=== PATIENT | male | born 1965 | race American Indian/Alaskan Native ===

== ENCOUNTER 2016-11-24 17:05 | Emergency (ER) | payer MEDICAID ==
[2016-11-24] MEDS ORDERED: levETIRAcetam 500 MG/5 ML Solution ML 473 ml Bottle PO SCH (17:30)
[2016-11-24] MEDS ORDERED: carBAMazepine 200 MG Tab PO ONE (17:32)
--- NOTE | 2016-11-24 17:40 | EDM.PDOC ---
ED HPI SEIZURE COMPLAINT - General Chief Complaint: Neuro Symptoms/Deficits Stated Complaint: seizures Time Seen by Provider: 11/24/16 17:10 Source of Information: Reports: EMS notes reviewed, Family, assisted records. Denies: Patient History Limitations: Reports: Other - History of Present Illness INITIAL COMMENTS - FREE TEXT/NARRATIVE: History of present illness: [Patient is a 51-year-old male brought in by EMS secondary to concerns of seizure activity. Patient has a known long-standing history of seizures secondary to numerous pre-existing neurological conditions. Patient is generally nonverbal and able to communicate intermittently sporadically by pointing to yes or no on a speaking board. Patient has been spitting out meds and approximately 2 days ago it was determined to discontinue all medications secondary to noncompliance with plan. Patient is at a long-term care facility and they became concerned due to to his lack of oral consumption of nutrition and spitting out of medication. Patient now has subsequently had a couple seizures today and the long-term care facility had been in dialogue with his lead military analyst who decided to have him brought to the hospital to be placed back on medication.] Review of systems: As per history of present illness and below otherwise all systems reviewed and negative. Past medical history: As per history of present illness and as reviewed below otherwise noncontributory. Surgical history: As per history of present illness and as reviewed below otherwise noncontributory. Social history: No reported history of drug or alcohol abuse. Family history: As per history of present illness and as reviewed below otherwise noncontributory. Physical exam: HEENT: Atraumatic, normocephalic, pupils reactive, negative for conjunctival pallor or scleral icterus, mucous membranes moist, throat clear, neck supple, nontender, trachea midline. Lungs: Clear to auscultation, breath sounds equal bilaterally, chest nontender. Heart: S1S2, regular, negative for clicks, rubs, or JVD. Abdomen: Soft, nondistended, nontender. Negative for masses or hepatosplenomegaly. Negative for costovertebral tenderness. Pelvis: Stable nontender. Genitourinary: Deferred. Rectal: Deferred. Extremities: Atraumatic. Neuro: Somnolent responsive primarily to noxious stimuli with no meaningful communication. Patient is bedbound and unable to interact or cooperate with full neurological assessment. Diagnostics: [] Therapeutics: [Dilantin, Keppra, Tegretol restart] Impression: [Seizure disorder] Plan: [Reinitiate routine seizure medication message left for Dr. Dodson in regards to this issue. Also communicated that patient and no desire to be lead military analyst and would like the [facility] to designate an outside guardian for patient.] Definitive disposition and diagnosis as appropriate pending reevaluation and review of above. - Related Data Allergies/ADRs: Allergies Allergy/AdvReac Type Severity Reaction Status Date / Time No Known Allergies Allergy Verified 11/24/16 17:22 Home Meds: Home Meds carBAMazepine [Tegretol] 200 mg PO BID 03/31/16 [History] Acetaminophen [Tylenol Extra Strength] 1,000 mg PO Q4HR PRN 04/01/16 [History] Dantrolene Sodium 25 mg PO TID 04/01/16 [History] Levothyroxine [Synthroid] 50 mcg PO ACBREAKFAST 04/01/16 [History] Phenytoin [Dilantin] 150 mg CHEW BID 04/01/16 [History] Sennosides/Docusate Sodium [Senna-Docusate Sodium Tablet] 2 tab PO BID 04/01/16 [History] levETIRAcetam [Keppra] 15 ml PO BID 04/01/16 [History] Promethazine HCl [Phenergan] 25 mg IM Q6H PRN 10/27/16 [History] Past Medical History Other HEENT History: Impaired swallowing pureed diet with ground, hoeny thickened liquids. Gastrointestinal History: Reports: Chronic constipation, Other (see below) Other Gastrointestinal History: hx of g tube, pulled 11/21/2015; hx Cintia- Ellis tear Other Genitourinary History: Incontinent of bladder. Other Musculoskeletal History: Unable to walk, complete ranjith lift, patient does move all extremities. Neurological History: Reports: Brain injury, Head trauma, Seizure Other Neuro History: Dyspagia. Psychiatric History: Reports: Depression, Mood swings Endocrine/Metabolic History: Reports: Hypothyroidism, Other (see below) Other Endocrine/Metabolic History: hepatic failure - Infectious Disease History Infectious Disease History: Reports: C-difficile Social & Family History - Tobacco Use Smoking Status *Q: Unknown Ever Smoked Second Hand Smoke Exposure: No - Recreational Drug Use Recreational Drug Use: No ED ROS GENERAL - Review of Systems Review Of Systems: See Below (See history of present illness) - Physical Exam Exam: See Below (See history of present illness) Course - Vital Signs Last Recorded V/S: Last Vital Signs Temp 37.6 C 11/24/16 17:05 Pulse 118 H 11/24/16 19:25 Resp 16 11/24/16 19:25 BP 148/85 H 11/24/16 19:25 Pulse Ox 96 11/24/16 19:25 - Orders/Labs/Meds Orders: Active Orders 24 hr Category Date Time Status Phenytoin 150 mg Med 11/24/16 17:45 Active Sodium Chloride 0.9% [Normal Saline] 100 ml IV Q8H levETIRAcetam [Keppra] Med 11/24/16 17:30 Active 1,500 mg PO BID Medication Orders Phenytoin Sodium 150 mg/ (Sodium Chloride) 103 mls @ 100 mls/hr IV Q8H CARLOS Last Admin: 11/24/16 17:40 Dose: 100 mls/hr Levetiracetam (Keppra) 1,500 mg PO BID CARLOS Last Admin: 11/24/16 18:18 Dose: 1,500 mg Meds: Medications Generic Name Dose Route Start Last Admin Trade Name Freq PRN Reason Stop Dose Admin Phenytoin Sodium 150 mg/ 103 mls @ 100 mls/hr 11/24/16 17:45 11/24/16 17:40 Sodium Chloride IV 100 mls/hr Q8H CARLOS Administration Levetiracetam 1,500 mg 11/24/16 17:30 11/24/16 18:18 Keppra PO 1,500 mg BID CARLOS Administration Discontinued Medications Generic Name Dose Route Start Last Admin Trade Name Freq PRN Reason Stop Dose Admin Carbamazepine 200 mg 11/24/16 17:32 11/24/16 18:15 Tegretol Tab PO 11/24/16 17:33 200 mg ONETIME ONE Administration Diazepam Confirm 11/24/16 18:15 Valium Administered 11/24/16 18:16 Dose 10 mg .ROUTE .STK-MED ONE Levetiracetam Confirm 11/24/16 18:02 11/24/16 18:19 Keppra Administered 11/24/16 18:03 Not Given Dose 1,500 mg .ROUTE .STK-MED ONE Departure - Departure Time of Disposition: 20:23 Disposition: DC/Tfer to [facility] Condition: good Clinical Impression: Seizure disorder Forms: ED Department Discharge Additional Instructions: The following information is given to patients seen in the emergency department who are being discharged to home. This information is to outline your options for follow-up care. We provide all patients seen in our emergency department with a follow-up referral. The need for follow-up, as well as the timing and circumstances, are variable depending upon the specifics of your emergency department visit. If you don't have a primary care physician on staff, we will provide you with a referral. We always advise you to contact your personal physician following an emergency department visit to inform them of the circumstance of the visit and for follow-up with them and/or the need for any referrals to a consulting specialist. The emergency department will also refer you to a specialist when appropriate. This referral assures that you have the opportunity for follow-up care with a specialist. All of these measure are taken in an effort to provide you with optimal care, which includes your follow-up. Under all circumstances we always encourage you to contact your private physician who remains a resource for coordinating your care. When calling for follow-up care, please make the office aware that this follow-up is from your recent emergency room visit. If for any reason you are refused follow-up, please contact the [facility] Emergency Department at and asked to speak to the emergency department charge nurse. You've been provided with medication to get you through until Saturday that would include Keppra Tegretol and Dilantin This information of this visit and the change of plans will be dialogue with Dr. Luna and a new plan of care will be firmly initiated Saturday Until that time resume Dilantin 150 mg twice a day Keppra 15 mils at 100 mg per male by mouth twice a day and that is in the liquid form and Tegretol 200 mg twice a day also he can have his dental inserting 25 mg by mouth 3 times a day Return to ED as needed as discussed with nurse at care facility - My Orders Last 24 Hours: My Active Orders 11/24/16 17:30 levETIRAcetam [Keppra] 1,500 mg PO BID 11/24/16 17:45 Phenytoin 150 mg Sodium Chloride 0.9% [Normal Saline] 100 ml IV Q8H - Assessment/Plan Last 24 Hours: My Active Orders 11/24/16 17:30 levETIRAcetam [Keppra] 1,500 mg PO BID 11/24/16 17:45 Phenytoin 150 mg Sodium Chloride 0.9% [Normal Saline] 100 ml IV Q8H
[2016-11-24] MEDS ORDERED: levETIRAcetam 500 MG Tab ONE (18:02)
[2016-11-24 20:00] VITALS: BP 148/85
[2016-11-24] MEDS ORDERED: carBAMazepine 200 MG Tab ONE (20:39)
== END 2016-11-24 20:30 | disposition home or self-care (01) ==
LOC: CC.ED 17:05
DX: G40.909 Epilepsy, unspecified, not intractable, without status epilepticus (principal); E03.9 Hypothyroidism, unspecified; Z79.899 Other long term (current) drug therapy
CPT/HCPCS: 96365; 99284; A9270; J1165; J7050

== ENCOUNTER → 2017-01-31 | Day surgery (SDC) | payer MEDICAID ==
[~2017-01-31] MED LIST: Lactated Ringers 1,000 ML ONE; Midazolam 1 MG/ML 2 ML SDV IV ONE; Propofol 200 MG/20 ML SDV IV ONE; ceFAZolin 1 GM Vial IVPUSH ONE; ceFAZolin 1 GM Vial ONE; fentaNYL 100 MCG/2 ML SDV IV ONE
[2017-01-31 14:15] VITALS: BP 138/93
== END | disposition home or self-care (01) ==
LOC: CC.SDS 09:22
PROVIDERS: ATTEND Dentist General Practice
DX: Z01.20 Encounter for dental examination and cleaning without abnormal findings (principal); E03.9 Hypothyroidism, unspecified; G40.909 Epilepsy, unspecified, not intractable, without status epilepticus; Z79.899 Other long term (current) drug therapy
CPT/HCPCS: 41899; J2250; J2704; J3010; J7120

== ENCOUNTER 2018-11-28 10:34 | Inpatient (IN) | payer MEDICAID ==
[2018-11-28 10:49] LABS: O2 DELIVERY DEVICE ROOM AIR
[2018-11-28 11:08] LABS: BICARBONATE,ARTERIAL 11.6 mm/L (22.0-26.0); O2 SATURATION ARTERIAL 94 % (95-98); PCO2 ARTERIAL 19 mm/Hg0 (35-45); PO2 ARTERIAL 67 mm/Hg (80-100)
[2018-11-28 11:22] LABS: CHLORIDE,CL 103 mEq/L (98-106); SODIUM,NA 142 mEq/L (136-145)
[2018-11-28] MEDS ORDERED: Sodium Chloride 0.9% 10 ML Syringe FLUSH PRN (12:13)
[2018-11-28] MEDS ORDERED: Acetaminophen 650 MG Supp RECTAL PRN (12:13)
[2018-11-28] MEDS ORDERED: Sodium Chloride 0.9% 500 ML ONE (13:10)
[2018-11-28] MEDS: Albuterol/Ipratropium 3.0-0.5 MG/3 ML Neb Soln NEB SCH ×2 (13:17→16:52)
[2018-11-28] MEDS: Clindamycin Phosphate in D5W 300 MG in Premix Bag 1 BAG IV SCH ×4 (13:23→17:58)
[2018-11-28] MEDS ORDERED: Enoxaparin 30 MG/0.3 ML Syringe SUBCUT SCH (13:30)
[2018-11-28] MEDS ORDERED: Sodium Chloride 0.9% 1,000 ML IV SCH (13:30)
[2018-11-28] MEDS ORDERED: Sodium Chloride 0.9% 500 ML IV SCH (13:30)
[2018-11-28] MEDS ORDERED: Pantoprazole 40 MG Vial IVPUSH SCH (15:00)
[2018-11-28] MEDS ORDERED: Ibuprofen Susp 100 MG/5 ML 5 ML UD Cup PO PRN (15:09)
[2018-11-28 16:51] VITALS: BP 105/44
--- NOTE | 2018-11-28 19:51 | PCM.PN ---
- General Info Date of Service: 11/28/18 Admission Dx/Problem (Free Text): Aspiration pneumonia Fever TBI/ nonverbal Subjective Update: Patient had active vomiting that was coffee ground in nature. - Review of Systems General: Reports: Fever HEENT: Reports: No Symptoms Pulmonary: Reports: Shortness of Breath, Other (tachypnic) Gastrointestinal: Reports: Vomiting Skin: Reports: Other (warm) Neurological: Reports: Other (traumatic brain / nonverbal) - Patient Data Vitals - Most Recent: Last Vital Signs Temp 99.9 F 11/28/18 16:32 Pulse 84 11/28/18 16:00 Resp 44 H 11/28/18 16:00 BP 105/44 L 11/28/18 16:00 Pulse Ox 96 11/28/18 18:32 Weight - Most Recent: 195 lb I&O - Last 24 Hours: Intake & Output 11/28/18 11/28/18 11/28/18 06:59 14:59 22:59 Intake Total 50 0 Balance 50 0 Lab Results Last 24 Hours: Laboratory Results - last 24 hr 11/28/18 11/28/18 11/28/18 Range/Units 10:48 10:48 10:48 WBC 23.6 H* (5.0-10.0) 10^3/uL RBC 6.65 H (4.50-6.00) 10^6/uL Hgb 18.4 H* (14.0-18.0) g/dL Hct 53.8 (40.0-54.0) % MCV 80.9 L (82.0-94.0) fL MCH 27.7 (27.0-32.0) pg MCHC 34.2 (33.0-38.0) g/dL RDW Coeff of Kimberly 16.4 H (11.0-15.0) % Plt Count 354 (150-400) 10^3/uL Add Manual Diff Yes Neutrophils % (Manual) 70 (35-85) % Band Neutrophils % 10 H (0-5) % Lymphocytes % (Manual) 13 L (21-55) % Monocytes % (Manual) 7 (2-12) % ABG pH 7.40 (7.35-7.45) ABG pCO2 19 L (35-45) mm/Hg0 ABG pO2 67 L (80-100) mm/Hg ABG HCO3 11.6 L (22.0-26.0) mm/L ABG O2 Saturation 94 L (95-98) % ABG Base Excess -13.0 L (-2.0-3.0) O2 Delivery Device Room air Sodium 142 (136-145) mEq/L Potassium 4.3 (3.5-5.0) mEq/L Chloride 103 (98-106) mEq/L Carbon Dioxide 20 L (21-32) mmol/L BUN 45 H D (7-18) mg/dL Creatinine 3.0 H* D (0.7-1.3) mg/dL Est Cr Clr Drug Dosing TNP Estimated GFR (MDRD) 22 L (>=60) mL/min Glucose 203 H D (75-99) mg/dL POC Glucose (75-105) mg/dl Calcium 8.7 (8.4-10.1) mg/dL Total Bilirubin 3.4 H (0.0-1.0) mg/dL AST 144 H (15-37) U/L ALT 143 H (12-78) U/L Alkaline Phosphatase 211 H (46-116) U/L C-Reactive Protein 16.4 H (0.2-0.8) mg/dL Total Protein 8.8 H (6.4-8.2) g/dL Albumin 3.5 (3.4-5.0) g/dL 11/28/18 11/28/18 Range/Units 15:45 17:56 WBC (5.0-10.0) 10^3/uL RBC (4.50-6.00) 10^6/uL Hgb (14.0-18.0) g/dL Hct (40.0-54.0) % MCV (82.0-94.0) fL MCH (27.0-32.0) pg MCHC (33.0-38.0) g/dL RDW Coeff of Kimberly (11.0-15.0) % Plt Count (150-400) 10^3/uL Add Manual Diff Neutrophils % (Manual) (35-85) % Band Neutrophils % (0-5) % Lymphocytes % (Manual) (21-55) % Monocytes % (Manual) (2-12) % ABG pH (7.35-7.45) ABG pCO2 (35-45) mm/Hg0 ABG pO2 (80-100) mm/Hg ABG HCO3 (22.0-26.0) mm/L ABG O2 Saturation (95-98) % ABG Base Excess (-2.0-3.0) O2 Delivery Device Sodium (136-145) mEq/L Potassium (3.5-5.0) mEq/L Chloride (98-106) mEq/L Carbon Dioxide (21-32) mmol/L BUN (7-18) mg/dL Creatinine (0.7-1.3) mg/dL Est Cr Clr Drug Dosing Estimated GFR (MDRD) (>=60) mL/min Glucose (75-99) mg/dL POC Glucose 198 H 133 H (75-105) mg/dl Calcium (8.4-10.1) mg/dL Total Bilirubin (0.0-1.0) mg/dL AST (15-37) U/L ALT (12-78) U/L Alkaline Phosphatase (46-116) U/L C-Reactive Protein (0.2-0.8) mg/dL Total Protein (6.4-8.2) g/dL Albumin (3.4-5.0) g/dL Moo Results Last 24 Hours: Microbiology 11/28/18 12:47 Anaerobic Blood Culture - Final Blood 11/28/18 12:47 Anaerobic Blood Culture - Final Blood 11/28/18 10:48 Influenza Type A Antigen Screen - Final Nasopharyngeal Swab NEGATIVE INFLUENZA A VIRUS AG Influenza Type B Antigen Screen - Final NEGATIVE INFLUENZA B VIRUS AG Med Orders - Current: Current Medications Acetaminophen (Tylenol) 650 mg RECTAL Q4H PRN PRN Reason: Mild pain/fever Last Admin: 11/28/18 13:20 Dose: 650 mg Albuterol/Ipratropium (Duoneb 3.0-0.5 Mg/3 Ml) 3 ml NEB Q4H CARLOS Last Admin: 11/28/18 16:52 Dose: 3 ml Carbamazepine (Tegretol Tab) 200 mg PO BID CARLOS Enoxaparin Sodium (Lovenox) 30 mg SUBCUT DAILY@1200 CARLOS Last Admin: 11/28/18 15:09 Dose: 30 mg Clindamycin Phosphate 300 mg/ (Premix) 50 mls @ 100 mls/hr IV Q6H CARLOS Last Admin: 11/28/18 17:58 Dose: 100 mls/hr Sodium Chloride (Normal Saline) 500 mls @ 500 mls/hr IV .BOLUS CARLOS Last Admin: 11/28/18 13:10 Dose: 500 mls/hr Sodium Chloride (Normal Saline) 1,000 mls @ 75 mls/hr IV ASDIRECTED CARLOS Last Admin: 11/28/18 14:11 Dose: 75 mls/hr Ibuprofen (Motrin 100 Mg/5 Ml Susp) 600 mg PO Q4H PRN PRN Reason: Fever Last Admin: 11/28/18 15:32 Dose: 600 mg Levetiracetam (Keppra) 1,500 mg PO BID CARLOS Pantoprazole Sodium (Protonix Iv) 40 mg IVPUSH DAILY CARLOS Last Admin: 11/28/18 15:10 Dose: 40 mg Polyethylene Glycol (Miralax) 17 gm PO DAILY CARLOS Sodium Chloride (Saline Flush) 10 ml FLUSH ASDIRECTED PRN PRN Reason: Keep Vein Open Discontinued Medications Sodium Chloride (Normal Saline) Confirm Administered Dose 500 mls @ as directed .ROUTE .STK-MED ONE Stop: 11/28/18 13:11 Last Admin: 11/28/18 13:10 Dose: Not Given - Exam Quality Assessment: Supplemental Oxygen (4L NC) General: Moderate Distress, Lethargic HEENT: Pupils Equal, Pupils Reactive Neck: Supple Lungs: Decreased Breath Sounds, Rhonchi Cardiovascular: Regular Rhythm, Tachycardia GI/Abdominal Exam: Normal Bowel Sounds, Soft, Non-Tender Extremities: Normal Inspection, No Pedal Edema, Normal Capillary Refill Skin: Dry, Intact (HOT) - Problem List Review Problem List Initiated/Reviewed/Updated: Yes - Assessment Assessment:: Patient was confirmed Code Level 2 by guardians on admission - I was called into the room by the nursing staff b/c the patient had vomited and was quickly declining. The paitent was noted to have coffee ground emesis but no smell of GI bleed was noted. It was reported to me by the nursing staff that the patient had a temperature of 101 2 hours earlier and was given tylenol rectally and 15 mins ago- on recheck was found to have temp 103 and the nursing staff had given the patient motrin suspension which the patient was vomiting. The patient at this time was tachypnic around 30/40 breaths a min. eyes were open and glassy and was nonverbal- he was quickly cleaned/ bedding changed and repositioned to help with further vomiting and to help reduce further aspirations. At this time the patient is palliative care status and continues to rapidly decline. - Plan Plan:: continue to keep the patient comfortable Repeat tylenol rectally in 4 hours from previous [employer] Consult[employer] provider was notified of the incident.
[2018-11-28] MEDS ORDERED: levETIRAcetam 500 MG/5 ML Solution ML 473 ml Bottle PO SCH (20:00)
[2018-11-28] MEDS ORDERED: carBAMazepine 200 MG Tab PO SCH (20:00)
[2018-11-29] MEDS ORDERED: Polyethylene Glycol 3350 Powder 17 GM Packet PO SCH (08:00)
--- NOTE | 2018-12-01 08:16 | PCM.DCSUM1 ---
Discharge Summary - Hospital Course Free Text/Narrative:: Called to the floor by nursing staff -They report the patients respirations had suddenly and dramatically decreased and patient had passed. Family was notified of patient's decline and . Diagnosis: Stroke: No - Discharge Data Discharge Date: 11/28/18 Discharge Disposition: 20 Preliminary Cause of *Q: Respiratory Failure Condition: - Discharge Diagnosis/Problem(s) (1) Respiratory failure SNOMED Code(s): 040818467 ICD Code: J96.90 - RESPIRATORY FAILURE, UNSP, UNSP W HYPOXIA OR HYPERCAPNIA Status: Acute Priority: High - Discharge Plan Home Medications: Home Meds carBAMazepine [Tegretol] 200 mg PO BID 03/31/16 [History] Polyethylene Glycol 3350 [Miralax] 17 gm PO DAILY 11/28/18 [History] Sucralfate [Carafate] 1 gm PO QID 11/28/18 [History] Tolnaftate [Tinactin] 1 spray TOP BID PRN 11/28/18 [History] levETIRAcetam [Keppra] 15 ml PO BID 11/28/18 [History] - Discharge Summary/Plan Comment DC Time >30 min.: No - General Info Admission Dx/Problem (Free Text: Aspiration pneumonia Fever TBI/ nonverbal Subjective Update: Patient had active vomiting that was coffee ground in nature. - Review of Systems General: Reports: No Symptoms - Patient Data Vitals - Most Recent: Last Vital Signs Temp 99.9 F 11/28/18 16:32 Pulse 84 11/28/18 16:00 Resp 44 H 11/28/18 16:00 BP 105/44 L 11/28/18 16:00 Pulse Ox 96 11/28/18 18:32 Weight - Most Recent: 195 lb COLTEN Results - Last 24 hrs: Microbiology 11/28/18 12:47 Aerobic Blood Culture - Preliminary Blood NO GROWTH AFTER 2 DAYS Anaerobic Blood Culture - Final 11/28/18 12:47 Aerobic Blood Culture - Preliminary Blood NO GROWTH AFTER 2 DAYS Anaerobic Blood Culture - Final Med Orders - Current: Current Medications Discontinued Medications Acetaminophen (Tylenol) 650 mg RECTAL Q4H PRN PRN Reason: Mild pain/fever Last Admin: 11/28/18 13:20 Dose: 650 mg Albuterol/Ipratropium (Duoneb 3.0-0.5 Mg/3 Ml) 3 ml NEB Q4H [facility] [place] Last Admin: 11/28/18 16:52 Dose: 3 ml Carbamazepine (Tegretol Tab) 200 mg PO BID [facility] [place] Enoxaparin Sodium (Lovenox) 30 mg SUBCUT DAILY@1200 CARLOS Last Admin: 11/28/18 15:09 Dose: 30 mg Clindamycin Phosphate 300 mg/ (Premix) 50 mls @ 100 mls/hr IV Q6H CARLOS Last Admin: 11/28/18 17:58 Dose: 100 mls/hr Sodium Chloride (Normal Saline) 500 mls @ 500 mls/hr IV .BOLUS [facility] [place] Last Admin: 11/28/18 13:10 Dose: 500 mls/hr Sodium Chloride (Normal Saline) 1,000 mls @ 75 mls/hr IV ASDIRECTED [facility] [place] Last Admin: 11/28/18 14:11 Dose: 75 mls/hr Sodium Chloride (Normal Saline) Confirm Administered Dose 500 mls @ as directed .ROUTE .STK-MED ONE Stop: 11/28/18 13:11 Last Admin: 11/28/18 13:10 Dose: Not Given Ibuprofen (Motrin 100 Mg/5 Ml Susp) 600 mg PO Q4H PRN PRN Reason: Fever Last Admin: 11/28/18 15:32 Dose: 600 mg Levetiracetam (Keppra) 1,500 mg PO BID [facility] [place] Pantoprazole Sodium (Protonix Iv) 40 mg IVPUSH DAILY [facility] [place] Last Admin: 11/28/18 15:10 Dose: 40 mg Polyethylene Glycol (Miralax) 17 gm PO DAILY [facility] [place] Sodium Chloride (Saline Flush) 10 ml FLUSH ASDIRECTED PRN PRN Reason: Keep Vein Open
== END 2018-11-28 21:38 | disposition expired | DRG 177 ==
LOC: CC.MS 10:34 → CC.FCMC 10:34 → UNDOADMIN 12:07 → CC.MS 12:07
PROVIDERS: ADMIT Physician Assistant Medical; ATTEND Family Medicine
DX: J69.0 Pneumonitis due to inhalation of food and vomit (principal); J96.02 Acute respiratory failure with hypercapnia; J96.01 Acute respiratory failure with hypoxia; N17.9 Acute kidney failure, unspecified; R50.81 Fever presenting with conditions classified elsewhere; Z66 Do not resuscitate; R06.03 Acute respiratory distress; Z51.5 Encounter for palliative care; R56.9 Unspecified convulsions; R06.82 Tachypnea, not elsewhere classified; R11.14 Bilious vomiting; Z79.899 Other long term (current) drug therapy; S06.5X0S Traumatic subdural hemorrhage without loss of consciousness, sequela; Z86.39 Personal history of other endocrine, nutritional and metabolic disease
CPT/HCPCS: 36415; 36600; 71045; 80053; 82803; 82962; 85025; 86140; 87040; 87804; 93005; 94640; A9270-GY; C9113; J1650; J3490; J7030; J7620-GY